=== PATIENT | female | born 1990 | race Caucasian/White ===

== ENCOUNTER 2016-09-24 21:27 | Emergency (ER) | payer MEDICAID ==
[~2016-09-24] VITALS: Wt 52.5 kg
[2016-09-24 23:37] LABS: BASOPHIL # 0.1 10^3/ul (0.0-0.1); BASOPHILS % 0.8 % (0.0-2.0); EOSINOPHILS # 0.1 10^3/ul (0.0-0.5); EOSINOPHILS % 0.5 % (0.0-7.0); HEMATOCRIT 42.4 % (37.0-47.0); HEMOGLOBIN 14.7 g/dl (12.0-16.0); LYMPHOCYTES % 31.1 % (15.0-51.0); MEAN CORPUSCULAR HEMOGLOBIN 32.1 pg (29.0-33.0); MEAN CORPUSCULAR HGB CONC 34.7 g/dl (32.0-37.0); MEAN CORPUSCULAR VOLUME 92.4 fl (82.0-101.0); MEAN PLATELET VOLUME 8.8 fl (7.4-10.4); MONOCYTE # 0.4 10^3/ul (0.3-0.9); MONOCYTES % 3.7 % (0.0-11.0); NEUTROPHIL # 6.2 10^3/ul (1.6-7.5); NEUTROPHILS % 63.9 % (39.0-77.0); PLATELET COUNT 287 10^3/UL (140-440); RED BLOOD COUNT 4.59 10^6/ul (4.20-5.40); RED CELL DISTRIBUTION WIDTH 13.1 % (11.5-14.5); UNCORRECTED WBC 9.8 10^3/ul (4.8-10.8); WHITE BLOOD COUNT 9.8 10^3/ul (4.8-10.8)
[2016-09-24 23:40] LABS: CONDITION 1
[2016-09-24 23:51] LABS: ADD UMIC YES; URINE BILIRUBIN (Dip) NEGATIVE (NEGATIVE); URINE BLOOD (Dip) 1+ (NEGATIVE); URINE COLOR LT. YELLOW (YELLOW); URINE GLUCOSE (Dip) NEGATIVE (NEGATIVE); URINE KETONES (Dip) 40 (NEGATIVE); URINE LEUKOCYTE ESTERASE (Dip) 1+ (NEGATIVE); URINE NITRITE (Dip) NEGATIVE (NEGATIVE); URINE TOTAL PROTEIN (Dip) NEGATIVE (NEGATIVE); URINE UROBILINOGEN (Dip) 0.2 E.U./dL (0.1-1.0)
[2016-09-25 00:09] LABS: BACTERIA,URINE FEW; SQUAMOUS EPITHELIAL CELL,UR MODERATE
[2016-09-25] MEDS ORDERED: TRAM50TA2 PO (02:04)
[2016-09-25] MEDS ORDERED: NITR-58 PO (02:07)
--- NOTE | 2016-09-25 02:10 | ERD ---
ER Documentation Chief Complaint Date/Time DATE: 09/25/16 TIME: 02:10 Chief Complaint was 6 wks had a miscarriage 1 wk ago, pelvic pain no actv bleeding HPI 25 year old female presents to ED one week after miscarriage. She states that she was 6 weeks when she began to have vaginal bleeding 1 week ago, and she went to an ER and was told that she was having a miscarriage after ultrasound showed a gestational sac with no heart tones. She had lab work done, however she does not have the results with her currently. She states that she was told that the products of conception would pass on their own , however she continues to have suprapubic pain and has not noticed any large clots or discharge since her last ER visit. She denies flank pain, vaginal discharge, vaginal bleeding, adnexal pain, vomiting and fever. She currently rates her pain a 7 out of 10 in severity. She has been taking Advil for relief of her pain, and does not wish to have any more medication pain medications at this time. ROS All systems reviewed and are negative except as per history of present illness. Medications Home Meds Active Scripts Nitrofurantoin Monohyd Macrocr* (Macrobid*) 100 Mg Capsr, 100 MG PO BID for 5 Days, #10 CAP Prov:Lissette Valladares PA-C 09/25/16 Tramadol HCl (Tramadol HCl) 50 Mg Tablet, 50 MG PO Q4 Y for PAIN, #20 TAB Prov:Lissette Valladares PA-C 09/25/16 PMhx/Soc History of Surgery: No Anesthesia Reaction: No Hx Neurological Disorder: No Hx Respiratory Disorders: No Hx Cardiac Disorders: No Hx Psychiatric Problems: No Hx Miscellaneous Medical Probl: Yes (miscarrage 4 years ago) Hx Alcohol Use: No Hx Substance Use: No Hx Tobacco Use: No Physical Exam Vitals Vital Signs Date Time Temp Pulse Resp B/P Pulse Ox O2 Delivery O2 Flow Rate FiO2 09/25/16 02:14 98.0 78 20 118/80 100 Room Air 09/24/16 21:48 98.2 72 20 114/76 100 Physical Exam GENERAL: Non-toxic. No apparent signs of distress. LUNGS: Clear to auscultation. No accessory muscle use. No wheezing, no crackles. No signs or symptoms of respiratory distress. HEART: Regular rate and rhythm. No murmurs, clicks, rubs or gallops. ABDOMEN: Soft, nontender and nondistended. Bowel sounds positive. No rebound or guarding. No gross peritoneal signs. No Cristina or McBurney point tenderness. No gross masses. BACK: No midline tenderness, no costovertebral tenderness. : There is mild thin mucoid discharge in the vaginal canal and around the os, no blood or clots, the os is closed, no CMT SKIN: There is no apparent rash, petechiae, erythema or swelling. Good skin turgor. Result Diagram: 09/24/161 Results 24 hrs Laboratory Tests Test 09/24/16 23:13 09/24/16 23:21 Urine Bacteria FEW Urine Bilirubin NEGATIVE Urine Clarity SL HAZY Urine Color LT. YELLOW Urine Glucose NEGATIVE% Urine Hemoglobin 1+ Urine Ketones 40 Urine Leukocyte Esterase 1+ Urine Microscopic RBC 2-5/HPF Urine Microscopic WBC 2-5/HPF Urine Nitrite NEGATIVE Urine Specific [place] 1.025 Urine Squamous Epithelial Cells MODERATE Urine Total Protein NEGATIVE Urine Urobilinogen 0.2 E.U./dL Urine pH 5.5 Basophils # 0.110^3/ul Basophils % 0.8% Beta HCG, Quantitative 288.9mIU/ml Eosinophils # 0.110^3/ul Eosinophils % 0.5% Hematocrit 42.4% Hemoglobin 14.7g/dl Lymphocytes # 3.010^3/ul Lymphocytes % 31.1% Mean Corpuscular Hemoglobin 32.1pg Mean Corpuscular Hemoglobin Concent 34.7g/dl Mean Corpuscular Volume 92.4fl Mean Platelet Volume 8.8fl Monocytes # 0.410^3/ul Monocytes % 3.7% Neutrophils # 6.210^3/ul Neutrophils % 63.9% Nucleated Red Blood Cells # 0.010^3/ul Nucleated Red Blood Cells % 0.0/100WBC Platelet Count 68140^3/UL Red Blood Count 4.5910^6/ul Red Cell Distribution Width 13.1% White Blood Count 9.810^3/ul Procedures/MDM Patient stated that she is in the process of miscarriage one week ago. Since then all vaginal bleeding has subsided. However she states that she continues to have suprapubic pain. She denies seeing any large clots or products of conception passed over the course of the last week. An workup along with transvaginal ultrasound was ordered to evaluate for retained products of conception. The patient did not have her records from her previous ER visit which was at a different hospital, however she believes that her beta hCG quant was around 1999. Rh Positive: does not need Rhogam beta hCG quant: 288 (decreased from previous result per patient) UA: 1+ leukocyte esterase (may be due to passage of products of conception rather than true UTI) US: Intrauterine with no cardiac activity. Gestational sac measures 0.9 cm. I proceeded to do a pelvic exam prior to calling the on-call labor wrist. On exam the patient's cervical os was closed and there was no blood or clots in the vaginal canal. The on-call laborist, Dr. Beavers, stated that based on the patient's stable vital signs and dropping beta hCG quant she is stable for discharge and advised to follow-up in 2 days for repeat ultrasound. I explained to the patient that the on-call labor is does not believe that any emergent D and C or causing cervical dilation through use of misoprostol is not necessary at this. I did however printed the results of labs and requested that they return to this ER in 2 days so that trending of beta hCG can be followed. I also explained to the patient that she had 1+ leukocyte esterase on her UA, and this may not be due to UTI but rather from the products of conception passing through the vaginal canal I asked if she had any symptoms of UTI she stated that she has occasional dysuria. I prescribed Macrobid as well as tramadol for her pain. At this time patient is stable for discharge and outpatient management. Advised to follow-up with [facility] or ER in 2 days for repeat ultrasound. Departure Diagnosis: Primary Impression: in first trimester Condition: Stable Patient Instructions: Understanding Miscarriage: During a Miscarriage, Miscarriage (Incomplete) Referrals: [facility] [place] [address] [facility] [address] [place] [id number]ABUSLEME YENI [address] [place], [place] [id number] [facility] [address] [place], [place] [phone] DR VANN, [facility] [id number] [facility], [address], [place] [address] DR GAMA, ERNESTINAROOZ [address] [address] [facility], [place] [address] [facility] [address] [place] [address] [phone] [address] [facility], [facility] [id number] - [address] HASTINGS, NAVI [address] [address] DR AMARO, ROSI [address] [facility]. [address], [place] [address] DR CARVAJAL, FARID [address] [place], [place] [phone] Lissette Valladares PA-C Sep 25, 2016 02:10
[2016-09-25 02:14] VITALS: BP 118/80; PULSE 78; RESP 20; TEMP 98
== END 2016-09-25 02:15 | disposition home or self-care (01) ==
LOC: FTE 21:27
DX: O03.9 Complete or unspecified spontaneous abortion without complication (principal); R10.2 Pelvic and perineal pain
CPT/HCPCS: 36415; 76801; 76817; 81001; 84702; 85025; 86900; 86901; Z7502; 81003

== ENCOUNTER 2016-09-29 10:41 | Emergency (ER) | END 2016-09-29 13:50 | disposition home or self-care (01) | DX: O20.0 Threatened abortion (principal); Z3A.01 Less than 8 weeks gestation of pregnancy | CPT/HCPCS: 36415; 76801; 76817; 81001; 81003; 84702; 85025; Z7502 ==

== ENCOUNTER 2017-08-08 19:02 | Outpatient (CLI) | payer MEDICAID ==
[~2017-08-08] VITALS: Ht 154.9 cm; Wt 62.5 kg
[~2017-08-08 19:02] MED LIST: NITR-58 PO; TRAM50TA2 PO
[2017-08-08 19:20] VITALS: BP 107/70; PULSE 69; RESP 18; Ht 154.9 cm; Wt 62.5 kg
[2017-08-08] MEDS ORDERED: PNV11TAB PO (19:22)
--- NOTE | 2017-08-08 20:12 | RADRPT ---
PROCEDURE: Limited OB ultrasound CLINICAL INDICATION: Fall. Pain. Assess placenta.. TECHNIQUE: Limited sonographic evaluation of the gravid uterus was performed to assess the placent a. COMPARISON: 09/29/2016. FINDINGS: Single live intrauterine with cardiac heart rate of 163 beats per minute is identifi ed. The amniotic -fluid MVP is 4.5 cm,. Fetus is in breech presentation. The placenta is located anteriorly. There is no evidence for placenta previa or abruption. IMPRESSION: 1. Anterior placenta without evidence for abruption or previa. RPTAT: HMVK .Douglas Callahan MD, Date Time Electronically viewed and signed by .Douglas Callahan MD, on 08/08/2017 20:11 .K/
[2017-08-08 20:17] LABS: BASOPHILS % 0.4 % (0.0-2.0); EOSINOPHILS # 0.1 10^3/ul (0.0-0.5); EOSINOPHILS % 0.9 % (0.0-7.0); HEMOGLOBIN 12.4 g/dl (12.0-16.0); LYMPHOCYTES # 1.9 10^3/ul (0.8-2.9); LYMPHOCYTES % 17.2 % (15.0-51.0); MEAN CORPUSCULAR HEMOGLOBIN 32.7 pg (29.0-33.0); MEAN CORPUSCULAR HGB CONC 33.5 g/dl (32.0-37.0); MEAN CORPUSCULAR VOLUME 97.6 fl (82.0-101.0); MONOCYTE # 0.7 10^3/ul (0.3-0.9); NEUTROPHIL # 8.5 10^3/ul (1.6-7.5); NEUTROPHILS % 74.7 % (39.0-77.0); PLATELET COUNT 203 10^3/UL (140-415); RED BLOOD COUNT 3.79 10^6/ul (4.20-5.40); RED CELL DISTRIBUTION WIDTH 13.6 % (11.5-14.5); WHITE BLOOD COUNT 11.3 10^3/ul (4.8-10.8)
[2017-08-08] MEDS ORDERED: ACETAMINOPHEN 325 MG TAB PO STA (21:47)
--- NOTE | 2017-08-09 04:22 | PN ---
Triage Information Date/Time Reason for visit: She had fall Weeks of Gestation 24 3/7 wks /Para Diabetes: none Hypertention: none Additional information Late Entry Note- Patient seen on 08/08/17 26 Year-old with SIUP at 24 3/7 wks states had fall at 16:00 todaypresents with a chief complaint of . She has been receiving her care with Dr. Mckinley. She states good movement. She denies nausea, vomiting, shortness of breath, chest pain, headache, visual changes, vaginal bleeding or LOF. Objective Vital Signs Date Time Temp Pulse Resp B/P Pulse Ox O2 Delivery O2 Flow Rate FiO2 08/08/17 19:20 98.3 69 18 107/70 Heart Rate: 140's Contractions: None Exam General: Patient appears well, alert and oriented, NAD, appropriate mood and affect ABD: gravid, soft, non-tender. Back: No CVA tenderness (B/L) LE: No clubbing, cyanosis, edema, thigh or calf tenderness bilaterally FHT: 140 bpm , moderate variability with acceleration, no deceleration-category I Contractions: None Results/Medications Result Diagram: 08/08/172005 Results 24 hrs Laboratory Tests Test 08/08/17 20:06 White Blood Count 11.3 #H Red Blood Count 3.79 L Hemoglobin 12.4 Hematocrit 37.0 Mean Corpuscular Volume 97.6 Mean Corpuscular Hemoglobin 32.7 Mean Corpuscular Hemoglobin Concent 33.5 Red Cell Distribution Width 13.6 Platelet Count 203 Mean Platelet Volume 11.0 #H Neutrophils % 74.7 Lymphocytes % 17.2 Monocytes % 6.0 Eosinophils % 0.9 Basophils % 0.4 Nucleated Red Blood Cells % 0.0 Neutrophils # 8.5 H Lymphocytes # 1.9 Monocytes # 0.7 Eosinophils # 0.1 Basophils # 0.0 Nucleated Red Blood Cells # 0.0 Assessment/Plan 26 Year-old with SIUP at 24 3/7 wks s/p fall - FHR: No sign of metabolic acidosis- Category I - Continuous EFM, toco - Contractions: None - US performed and discussed with pt, no placental abruption - CBC, Blood type and screen done and discussed with pt - Symptoms and sign of labor, preeclampsia, kick count discussed with patient, she voiced understanding. All of her questions answered. - Patient was discharged home in stable condition with the appropriate discharge instructions provided. I would like patient to have close follow-up with her primary physician or outpatient clinic in 1-2 days or return to the ER for worsening symptoms or any other urgent concerns. NIKOLAY GONZALEZ Aug 09, 2017 04:20
--- NOTE | 2017-08-09 04:38 | TRIAGE ---
OB Triage Datetime Report Generated by CPN: 08/09/2017 04:37 Datetime: 08/09/2017 00:21 Stage of : OB Triage Labor Evaluation Frequency: x2 Monitor Mode: External Duration (sec)2399: 40-50 Quality: Mild Resting Tone [place]: Relaxed Heart Rate FHR Baseline Rate: 140 Monitor Mode: External US Variability: Moderate 6-25 bpm Accelerations: 15X15 Decelerations: None Category: Category I Comments: appropriate for ga Pain Assessment Pain Scale: 1 Pain Presence: Constant Pain Type: Ache Pain Location: Abdomen Pain Relief Measures: Comfort Measures Pain Assessment Comments: rt to sp fall Datetime: 08/09/2017 00:19 Stage of : OB Triage Datetime: 08/08/2017 23:45 Labor Evaluation Frequency: 0 Monitor Mode: External Resting Tone [place]: Relaxed Heart Rate FHR Baseline Rate: 140 Monitor Mode: External US Variability: Moderate 6-25 bpm Accelerations: 15X15 Decelerations: None Category: Category I Comments: APPROPRIATE FOR GA Datetime: 08/08/2017 23:28 Monitor Mode: External Monitor Mode: External US Datetime: 08/08/2017 22:43 Stage of : OB Triage Monitor Mode: External Monitor Mode: External US Datetime: 08/08/2017 22:41 Monitor Mode: External US Datetime: 08/08/2017 22:39 Monitor Mode: External Datetime: 08/08/2017 21:42 Labor Evaluation Frequency: X6 Monitor Mode: External Duration (sec)2399: 40-100 Quality: Mild Resting Tone [place]: Relaxed Heart Rate FHR Baseline Rate: 140 Monitor Mode: External US Variability: Moderate 6-25 bpm Accelerations: 15X15 Decelerations: None Category: Category I Datetime: 08/08/2017 21:33 Stage of : OB Triage Datetime: 08/08/2017 21:31 Stage of : OB Triage Datetime: 08/08/2017 21:08 Labor Evaluation Frequency: 0 Monitor Mode: External Resting Tone [place]: Relaxed Contraction Comments: TOCO repositioned Heart Rate FHR Baseline Rate: 140 Monitor Mode: External US Variability: Moderate 6-25 bpm Accelerations: 15X15 Decelerations: None Category: Category I Comments: Appropriate for ga Datetime: 08/08/2017 20:50 Stage of : OB Triage Datetime: 08/08/2017 20:19 Stage of : OB Triage Labor Evaluation Frequency: 0 Monitor Mode: External Resting Tone [place]: Relaxed Heart Rate FHR Baseline Rate: 140 Monitor Mode: External US Variability: Moderate 6-25 bpm Accelerations: 15X15 Decelerations: None Category: Category I Pain Assessment Pain Scale: 4 Datetime: 08/08/2017 20:06 Stage of : OB Triage Datetime: 08/08/2017 20:02 Monitor Mode: External US Datetime: 08/08/2017 19:41 Stage of : OB Triage Monitor Mode: External Monitor Mode: External US Datetime: 08/08/2017 19:31 Stage of : OB Triage Datetime: 08/08/2017 19:27 Stage of : OB Triage Assessment Type: Triage Maternal Assessment Level of Consciousness: Fully Conscious DTR's/Clonus: DTRs 2+; No Clonus Headache: Denies Blurred Vision: No Respiratory Effort: Unlabored; Regular Rhythm; Equal Expansion Breath Sounds, Left: Clear and Equal Breath Sounds, Right: Clear and Equal Nausea/Vomiting: Denies RUQ Epigastric Pain: Denies Facial Edema: None Temperature Route: Axillary Fall Risk Assessment History of Falling: (0) No Secondary Diagnosis: (0) No Ambulatory Aid: (0) Bedrest/Nurse Assist IV Therapy: (0) No Gait: (0) Normal/Bedrest/Immobile Mental Status: (0) Oriented to Own Ability Fall Score: 0 Fall Risk Score Definition: No Risk: No action required Labor Evaluation Frequency: 0 Monitor Mode: External Resting Tone [place]: Relaxed Heart Rate FHR Baseline Rate: 145 Monitor Mode: External US Variability: Moderate 6-25 bpm Accelerations: 10X10 Decelerations: None Category: Category I Pain Assessment Pain Scale: 4 Pain Presence: Intermittent Pain Type: Pressure Pain Location: Abdomen Pain Goal: 3 Pain Relief Measures: Comfort Measures Datetime: 08/08/2017 19:14 Stage of : OB Triage Datetime: 08/08/2017 19:13 Time of Arrival: 08/08/2017 19:00 EGA: 24.3 Arrived By: Ambulatory Arrived From: Home Chief Complaint: FELL DOWN THE STAIRS HITTING RIGHT SIDE OF ABDOMEN, DENIES LEAKING, BLEEDING OR U C'S Movement: Present Contractions: Denies/Absent Rupture of Membranes: Denies Vaginal Bleeding: None Vaginal Discharge: Denies Recent Sexual Intercouse: Denies Abdominal Trauma: Fall Patient Complaints: None Time Provider Notified: 08/08/2017 19:10 Provider Notified: hadadian Initial Plan: MONITOR, T_S, cbc, u/s r/o abruption
== END 2017-08-09 00:39 | disposition home or self-care (01) ==
LOC: OBT 19:02 → L-D 19:03 → OBT 08-09 00:39
PROVIDERS: ATTEND Obstetrics & Gynecology
DX: O9A.212 Injury, poisoning and certain other consequences of external causes complicating pregnancy, second trimester (principal); T14.90XA Injury, unspecified, initial encounter; W19.XXXA Unspecified fall, initial encounter; Z3A.24 24 weeks gestation of pregnancy
CPT/HCPCS: 36415; 76815; 85025; 86850; 86900; 86901; Z7500; Z7610; G0463

== ENCOUNTER 2017-09-07 14:06 | Outpatient (CLI) | END 2017-09-07 17:10 | disposition home or self-care (01) ==